=== PATIENT | female | born 2000 | race African-American/Black ===

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

== ENCOUNTER 2023-02-19 14:53 | Emergency (ER) | payer BC, SELFPAY ==
[2023-02-19 14:55] VITALS: BP 95/66; PULSE 90; RESP 12; TEMP 37.1; O2SAT 100
--- NOTE | 2023-02-19 15:36 | ED.GENADULT ---
HPI - General Adult General Chief complaint: Unspecified Stated complaint: wants test Time Seen by Provider: 02/19/23 14:57 Source: patient Mode of arrival: ambulatory Limitations: no limitations History of Present Illness HPI narrative: This is a 22-year-old female who presents to the ED for test. Patient states she had a home test that was positive and would like to confirmation. She is completely asymptomatic. Unsure of her last normal menstrual period. Related Data Home Medications Medication Instructions Recorded Confirmed prenat.vits,ivon,qmj-gtpx-jjcnn 1 tablet PO DAILY 11/02/20 11/02/20 Allergies Allergy/AdvReac Type Severity Reaction Status Date / Time No Known Allergies Allergy Verified 02/19/23 15:43 Review of Systems Review of Systems: CONSTITUTIONAL: Denies fever, chills, or sweats. SKIN: Denies rash or itching. MUSCULOSKELETAL: Denies back pain, joint pain, or myalgia. NEUROLOGIC: Denies headache, numbness, dizziness, or weakness. PSYCHIATRIC: Denies anxiety or depression. [facility] Family History Family History Other No pertinent family history in first degree relatives Social History Social History Smoking status: Never smoker Substance use: never Gender identity (if verbalized by the patient): Female Spiritual care concerns: No Exam Narrative: GENERAL: Well-appearing, well-nourished, and in no acute distress. HEAD: Normocephalic, atraumatic. EXTREMITIES: Normal range of motion. No edema. SKIN: Warm, dry, no rash. NEURO: Alert and oriented x3. No focal deficits. PSYCH: Normal mood and affect. Course Vital Signs Vital signs: Vital Signs Temperature 98.8 F 02/19/23 14:55 Pulse Rate 90 02/19/23 14:55 Respiratory Rate 12 02/19/23 14:55 Blood Pressure 95/66 L 02/19/23 14:55 Pulse Oximetry 100 02/19/23 14:55 Oxygen Delivery Room Air 02/19/23 14:55 Temperature 98.8 F 02/19/23 14:55 Pulse Rate 80 02/19/23 17:10 Respiratory Rate 16 02/19/23 17:10 Blood Pressure 116/85 02/19/23 17:10 Pulse Oximetry 100 02/19/23 17:10 Oxygen Delivery Room Air 02/19/23 14:55 Medical Decision Making MDM Narrative Medical decision making narrative: This is a 22-year-old female presents to the ED for test. Patient had a positive home test and would like to confirm this. She is asymptomatic. Vitals are normal. Exam normal. test positive on urine, quantitative test is at 58.03. Patient states that she has an OB that she can follow-up with. Encouraged her to do this as soon as she can. She is taking prenatals. Stable for discharge. Vital Signs Vital Signs: Vital Signs Temperature 98.8 F 02/19/23 14:55 Pulse Rate 90 02/19/23 14:55 Respiratory Rate 12 02/19/23 14:55 Blood Pressure 95/66 L 02/19/23 14:55 Pulse Oximetry 100 02/19/23 14:55 Oxygen Delivery Room Air 02/19/23 14:55 Temperature 98.8 F 02/19/23 14:55 Pulse Rate 80 02/19/23 17:10 Respiratory Rate 16 02/19/23 17:10 Blood Pressure 116/85 02/19/23 17:10 Pulse Oximetry 100 02/19/23 17:10 Oxygen Delivery Room Air 02/19/23 14:55 Lab Data Labs: Lab Results 02/19/23 Range/Units 15:53 Beta HCG, Quant 58.03 mIU/ML UCG Bedside Result Positive Reference Range: Negative Discharge Plan Discharge Clinical Impression: Encounter for test Patient Disposition: Home, Self-Care Condition: Stable Instructions: Antibiotic Form Additional Instructions: Your test here in the ER are positive. Please follow-up with your JUSTICE COURT DEPUTY CLERK. Attaching an JUSTICE COURT DEPUTY CLERK in your paperwork as well in case you need this referral. Please return if you have any emergent concerning s
[2023-02-19 16:27] LABS: Beta HCG Quantitative 58.03 mIU/ML
[2023-02-19 17:10] VITALS: BP 116/85; PULSE 80; RESP 16; O2SAT 100
== END 2023-02-19 17:13 | disposition home or self-care (01) ==
PROVIDERS: Emergency Provider Physician Assistant
DX: Z32.01 Encounter for pregnancy test, result positive (principal)
CPT/HCPCS: 36415; 81025; 84702; 99283

== ENCOUNTER 2023-02-28 10:33 | Outpatient (RCR) | payer BC, SELFPAY ==
[2023-02-26 12:28] LABS: Beta HCG Quantitative 25.82 mIU/ML
[2023-02-28 11:28] LABS: Beta HCG Quantitative 8.56 mIU/ML
== END 2023-05-27 23:59 | disposition home or self-care (01) ==
LOC: ANHOBOP 10:33
PROVIDERS: Visit Provider Advanced Practice Midwife
DX: O20.0 Threatened abortion (principal); Z3A.00 Weeks of gestation of pregnancy not specified
CPT/HCPCS: 36415; 84702

== ENCOUNTER 2023-06-18 02:46 | Day surgery (SDC) | payer BC, SELFPAY ==
[2023-06-17 08:26] VITALS: BMI 29.9
--- NOTE | 2023-06-17 08:32 | PC.NURSE ---
Report to the Outpatient Waiting Room, entrance under the green pavilion located off [facility], at time 11:45am on date 06-18-23. Planned Procedure Time: 1:45pm. Time changes happen often and if your time is changed the preop area will call you the afternoon before. - You and your visitor will be asked to self-screen and do not enter if you have any COVID symptoms. - A mask is optional within the hospital at this time. Patients may have clear liquids (water, carbonated beverages, clear teas, apple juice) until 3 hours prior to surgery (10:45am) with a maximum of 20 ounces. - No food from midnight until time of surgery Take the following medications with a SIP of water the morning of surgery: n/a DO NOT STOP ANY OF YOUR OTHER PRESCRIPTION MEDICATIONS PRIOR TO SURGERY ?EXCEPT THE FOLLOWING Medications to discontinue per physician: n/a Please no make-up, nail georgian, hairspray, perfume, deodorant, or body powder the day of surgery. No jewelry (including any body piercings) or valuables the day of surgery, leave them at home. Please take a shower or bath the night before, or the morning of, surgery with an antibacterial soap. Wear comfortable, loose fitting clothing. - Jewelry must be removed prior to entering the operating room. Rings and piercings that are not removed may be cut off. - The hospital will not accept responsibility for valuables. - Please leave all valuables, including medications, at home the day of surgery. If you are going home after surgery, a licensed pizza driver must drive you home. - NO public transportation without another adult if you receive anesthesia. - We recommend that an adult stay with you for 24 hours following discharge. - We also recommend that you do not drive, make important decision, drink alcoholic beverages, or take any drugs that were not prescribed by your health care provider for at least 24 hours after your discharge time. Follow any additional instructions given to you from your surgeon. If you or anyone in your household have experienced Covid symptoms in the past week, please notify your surgeon or the nurse liaison at the phone number below for possible testing. Telephone instructions given to PATIENT and asked if any additional questions and then verbalized understanding. Patient advised to call surgeon office or pre surgery nurse liaison [phone] if any additional questions.
--- NOTE | 2023-06-18 10:33 | P.PNAN_ITS ---
Anes - Initial Pre Proc Eval Procedure: Operation Date: 06/18/23 13:45 Proposed Procedures p Suction Dilatation and Curettage - Bharati Gibbons MD Date/Time: 06/18/23 10:33 Surgeon: Bharati Gibbons MD Pre Op Diagnosis: missed AB Patient Data Age: 23 Gender: F Height: 1.56 m Weight: 73 kg Allergies Allergy/AdvReac Type Severity Reaction Status Date / Time No Known Allergies Allergy Verified 06/18/23 12:02 Home Medications Medication Instructions Recorded Confirmed Type No Home Medications 06/17/23 06/18/23 History Patient hx anesthesia problems: none Family hx anesthesia problems: none Results Review: All pre-operative results and documents have been reviewed as part of the pre- operative evaluation. [facility] Past Medical History Medical History (Updated 06/18/23 @ 10:34 by Brian Grady DO) Asthma Family History Family History Other No pertinent family history in first degree relatives Social History Social History Smoking status: Never smoker Second hand tobacco smoke exposure: No Alcohol intake: current Alcohol use details: rarely/occassional Substance use: former Substance use type: marijuana Living arrangements: alone Gender identity (if verbalized by the patient): Female Spiritual care concerns: No Anes - Eval Final PreProcedure Day of Procedure 06/18/23 10:33 Patient weight: overweight Heart: regular rate and rhythm Lungs: clear to auscultation Airway: Mallampati scale class II Neurological: alert and oriented Last oral intake: >/= 8 hours ASA classification: II Emergent: no Anesthetic plan: proceed Anesthesia type and monitoring: general GIVS and standard monitoring Results Review: All pre-operative results and documents have been reviewed as part of the pre- operative evaluation. Informed Consent: The patient's anesthetic plan and its attendant risks and benefits were discussed with the patient/family/POA. Questions were solicited and answers provided to the satisfaction of the patient/family/POA.
[2023-06-18 12:05] VITALS: BP 107/60; PULSE 72; RESP 20; TEMP 36.7; O2SAT 100
[2023-06-18] MEDS: ACETAMINOPHEN 500 MG TABLET 1000 MG PO (12:16)
[2023-06-18] MEDS: LACTATED RINGERS 1,000 ML 30 ML IV CONT ×2 (12:30→14:21)
[2023-06-18] MEDS: DOXYCYCLINE 100 MG/NS 100 ML 100 MG/100 ML BAG IVPB (12:55)
--- NOTE | 2023-06-18 13:27 | PM.IMHP ---
H&P: HPI History of Present Illness Date/Time: 06/18/23 13:27 Chief Complaint: miscarriage Narrative: Bhumika is a 23yo with a week of dark spotting who presented to the office for an US. Had had an 8w US with FHT. At 10w GA by dates on 06/08 had no FHT. She opted for a D and C. Rh pos. Review of Systems Review of Systems: All systems reviewed & are unremarkable except as noted in HPI and below PMFSH Past Medical History Medical History (Updated 06/18/23 @ 13:29 by Bharati Gibbons MD) Asthma Family History Family History Other No pertinent family history in first degree relatives Social History Social History Smoking status: Never smoker Second hand tobacco smoke exposure: No Alcohol intake: current Alcohol use details: rarely/occassional Substance use: former Substance use type: marijuana Living arrangements: alone Gender identity (if verbalized by the patient): Female Spiritual care concerns: No Meds Home Medications and Allergies Home Medications Medication Instructions Recorded Confirmed Type No Home Medications 06/17/23 06/18/23 History Allergies Allergy/AdvReac Type Severity Reaction Status Date / Time No Known Allergies Allergy Verified 06/18/23 12:02 Vital Signs Vital Signs - 24 hr 06/18/23 12:05 Temperature 98.0 F Pulse Rate 72 Respiratory Rate 20 Blood Pressure 107/60 Pulse Oximetry 100 Oxygen Delivery Room Air Exam Const: General: no acute distress Resp: Effort & Inspection: normal respiratory effort Auscultation: clear to auscultation bilaterally Cardio: Rate: regular rate Rhythm: regular rhythm GI: GI Palp: Yes Soft to palpation Extrem: General: normal to inspection Assessment and Plan Assessment and plan (1) Missed : Code(s): O02.1 - Missed Status: Acute Plan consented for sD and C for missed . Previously discussed RBA. Rh pos. will proceed. laly.
--- NOTE | 2023-06-18 13:38 | WPDHPUPDATE1 ---
History and Physical Update Update Date/Time: 06/18/23 13:38 History and Physical has been reviewed, including an updated exam of the patient. There are NO changes in the patient's condition. She does report an additional sab at 4-5 w earlier this year so . Risks, benefits, and alternatives have been discussed and questions answered. Patient agrees to proceed with procedure.
--- NOTE | 2023-06-18 14:18 | W.PM.PROC2 ---
Procedure Note - Detailed Date of Procedure 06/18/23 Pre-op Diagnosis missed AB Post-op Diagnosis Same Procedure Performed suction D and C Surgeon Bharati Gibbons MD Anesthesia MAC and Local Indications missed ab at 8 weeks Findings anteverted uterus sounding to 7cm Description of Procedure The patient was taken to the OR and placed in supine position in dorsal lithotomy. She received MAC anesthesia and doxycycline. She was prepped and draped in normal fashion. A speculum was placed and the cervix was grasped with a single tooth tenaculum. A paracervical block was placed with 10cc 0.25% marcaine with epinephrine. The cervix was sequentially dilated to 8 hassan. The suction was tested and then the suction catheter was inserted into the uterine cavity. Several passes were made until no further products of conception were obtained. Minimal products were obtained so the bedside ultrasound was used to confirm an empty uterus with a normal endometrial stripe. The tenaculum was removed and hemostasis was obtained with pressure and monsel's solution. The speculum was removed. The patient tolerated the procedure well and was taken to the recovery room in stable condition. Estimated Blood Loss 10 Drains No Packing No Pathology Yes Complications No immediate complications Condition Stable Disposition Same day
[2023-06-18 14:25] VITALS: BP 96/41; PULSE 102; RESP 12; O2SAT 100
[2023-06-18 14:55] VITALS: BP 90/57; PULSE 69; RESP 12; O2SAT 100
[2023-06-18 15:25] VITALS: BP 93/50; PULSE 65; RESP 14
== END 2023-06-18 15:33 | disposition home or self-care (01) ==
PROVIDERS: Visit Provider Obstetrics & Gynecology
PROC: (CPT 59820; principal; 2023-06-18 13:45)
DX: O02.1 Missed abortion (principal)
CPT/HCPCS: 59820; 88305; A9270; J1100; J2250; J2405; J2704; J3010; J7120